=== PATIENT | male | born 1965 | race Caucasian/White ===

== ENCOUNTER 2016-12-27 18:27 | Emergency (ER) | payer OTHER ==
[~2016-12-27] VITALS: Ht 175.3 cm; Wt 81.6 kg
[2016-12-27 18:50] VITALS: BP 111/76
[2016-12-27] MEDS ORDERED: ATIVAN1 MG ORAL (19:00)
[2016-12-27 19:03] VITALS: BP 120/80
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
== END 2016-12-27 19:30 | disposition home or self-care (01) ==
LOC: EMR 19:05
DX: Z76.0 Encounter for issue of repeat prescription (principal); Z76.5 Malingerer [conscious simulation]; Z86.59 Personal history of other mental and behavioral disorders
CPT/HCPCS: 99283